=== PATIENT | male | born 1970 | race Caucasian/White ===

== ENCOUNTER 2017-10-18 15:41 | Emergency (ER) | payer MEDICARE, OTHER ==
[~2017-10-18] VITALS: Ht 162.6 cm; Wt 118.0 kg
[~2017-10-18 15:41] MED LIST: CITR454; DULO60CA6; FLURBIPROFEN; GABA-526; POLYETHYLENE GLYCOL; SENN8.6C3; ZOLP5TAB; [UNRECOGNIZED DRUG - OTHER]
[2017-10-18 15:50] VITALS: Ht 162.6 cm; Wt 118.0 kg
[2017-10-18] MEDS ORDERED: KETOROLAC 30 MG INJ IM STA (18:25)
--- NOTE | 2017-10-18 19:52 | RADRPT ---
PROCEDURE: XR Lumbar Spine. CLINICAL INDICATION: 47 years of age, male. Back pain. TECHNIQUE: AP, lateral and cone-down lateral views of the lumbar spine were obtained. COMPARISON: No prior studies are available for comparison. FINDINGS: There are 5 lumbar-type vertebrae. Lumbar spine is imaged from T12 to the sacrum. Status post combined anterior posterior instrumented fusion at L4-5 and L5-S1 with pedicle screws tr ansfixed by vertical bridging rods. There interbody fusion devices and anterior screws at L5 and S1. Orthopedic hardware has the expected appearance without evidence of loosening or failure. There has been a laminectomy at L5 for posterior decompression. Mild curvature convex left centered on L3. Otherwise normal alignment. Negative for evidence of acut e fracture. There is mild degenerative disc disease at L1-2, L2-3 and L3-4 with disc space narrowing and osteoph ytes. Degenerative changes are greatest at L2-3. Sacroiliac joints are unremarkable. There are surgical clips anterior to the lower lumbar spine and sacrum. Additional comment: There is a neurostimulator in the lower thoracic spinal canal that enters the c anal posteriorly at the T12-L1 level. There is moderate formed stool in the colon. IMPRESSION: 1. Status post combined anterior posterior instrumented fusion at L4-5 and L5-S1 and status post L5 laminectomy with the expected postoperative appearance. 2. Mild degenerative disc disease greatest at L2-3. Neurostimulator in the lower thoracic spinal can al. 3. Moderate amount of formed stool in the colon may indicate constipation. RPTAT: HCTS Physician Geovanny Date Time Electronically viewed and signed by Physician Geovanny on 10/18/2017 19:52 /
--- NOTE | 2017-10-18 20:42 | ERD ---
ER Documentation Chief Complaint Chief Complaint bib self, cc: left sided lower back pain radiating to leg, HPI Obese 47-year-old male with history of back pain presents with a chief complaint of back pain. States has gotten worse over the past couple days. History of opioid dependence. Currently taking acetaminophen with codeine and Flexeril for the pain. Patient denies trauma, saddle paresthesia, incontinence , urinary retention, or PND, fevers, chills, night sweats. Has had previous surgeries on his back. Pain rated 9/10. Worse with movement. No alleviating factors. Patient has no other complaints and describes no other associated manifestations. Nursing notes have been reviewed and are consistent with history given. ROS All systems reviewed and are negative except as per history of present illness. Medications Home Meds Reported Medications Zolpidem Tartrate (Ambien Severiano) 5 Mg Tablet, PO 05/18/12 Sennosides* (Senna*) 8.6 Mg Capsule 05/18/12 [Flurbiprofen] No Conflict Check 05/18/12 Gabapentin* (Gabapentin*) 600 Mg Tablet 05/18/12 Duloxetine Hcl* (Cymbalta*) 60 Mg Capsule. 05/18/12 [Actavis] No Conflict Check 05/18/12 [Polyethylene Glycol] No Conflict Check 05/18/12 Methylcellulose* (Citrucel*) 454 Gm Susp 05/18/12 Allergies Allergies: Uncoded Allergies: IODINE CONTRAST (Allergy, Severe, ANPHYLAXIS, 06/21/10) PMhx/Soc History of Surgery: Yes (LUMBAR SURGERY 2002, RIGHT SHOULDER, LEFT TESTICULAR SURGERY) Anesthesia Reaction: No Hx Neurological Disorder: Yes (HEADACHES RELATED TO FALL INJURY AT WORK 2002) Hx Respiratory Disorders: No Hx Cardiac Disorders: No Hx Psychiatric Problems: No Hx Miscellaneous Medical Probl: Yes (CHRONIC BACK PAIN) Hx Alcohol Use: No Hx Substance Use: No Hx Tobacco Use: No Smoking Status: Never smoker Physical Exam Vitals Vital Signs Date Time Temp Pulse Resp B/P Pulse Ox O2 Delivery O2 Flow Rate FiO2 10/18/17 15:50 98.8 91 18 133/81 96 Physical Exam Const: Morbidly obese. Mild distress. Well-appearing. Back: No midline, flank or CVA tenderness. Negative straight leg raise. Range of motion decreased secondary to pain. Neur: No saddle anesthesia. Neurovascularly intact bilaterally. Eyes: Non-injected; No discharge. EOMI and YULISSA bilaterally. Neck: No tenderness. No cervical lymphadenopathy, or masses palpated. Supple ~ No meningismus. Pulm: Good air movement in upper and lower respiratory tracts. Clear to auscultation bilaterally. No dyspnea or stridor. Cardio: Regular rate and rhythm; No murmurs, gallops or rubs auscultated. Radia pulses 2+ bilaterally. No cyanosis noted. Capillary refill less than 2 seconds. Abd: Normal bowel sounds. No palpable mass. MS: Normal motor strength, normal tone with gross examination. Skin: No petechiae or rashes. Good turgor. Psych: Normal Mood and Affect. Results 24 hrs Current Medications Medications (Trade) Dose Ordered Sig/Juwan Route PRN Reason Start Time Stop Time Status Last Admin Dose Admin Ketorolac Tromethamine (Toradol) 30 mg ONCE STAT IM 10/18/17 18:25 10/18/17 18:27 DC 10/18/17 18:58 Procedures/MDM Patient with chronic back pain presents with a chief complaint of back pain. Toradol given in the ED with adequate relief of symptoms. Ambulation WNL after Toradol. No concern for cauda equina or other neurovascular compromise. X-ray was obtained and revealed the followin. Status post combined anterior posterior instrumented fusion at L4-5 and L5- S1 and status post L5 laminectomy with the expected postoperative appearance. 2. Mild degenerative disc disease greatest at L2-3. Neurostimulator in the lower thoracic spinal canal. 3. Moderate amount of formed stool in the colon may indicate constipation. No neurological deficits. No midline tenderness. I have no concern for acute osseous abnormality including fracture dislocation, cauda equina or other neurovascular compromise. Most likely diagnosis is paraspinal muscle spasm versus degenerative disc disease versus back pain of unknown etiology. I have spoke with the patient regarding their condition and future management. They have verbally responded that they understand their status and treatment plan. The patients vitals are stable, and their current condition is appropriate for discharge. The patient will be given discharge instructions with return precautions. Departure Diagnosis: Primary Impression: Back pain Back pain location: low back pain Chronicity: chronic Back pain laterality : bilateral Sciatica presence: without sciatica Qualified Code: M54.5 - Chronic bilateral low back pain without sciatica Condition: Stable Patient Instructions: Back Pain (Acute Or Chronic) Referrals: GAMALIEL SABILLON DO (PCP) Additional Instructions: Follow up with your PCP within the next 1-3 days for a more thorough evaluation and a possible referral to a specialist. Return the the emergency department immediately if symptoms worsen or change. If you have any questions regarding medications, ask your pharmacist or us before you leave. If any adverse reactions occur while taking your medications, discontinue the treatment and return to the emergency department immediately. Take your medications as directed, and complete the entire course of treatment. SANTOS CHI PA-C Oct 18, 2017 20:42
== END 2017-10-18 21:33 | disposition home or self-care (01) ==
LOC: FTE 15:41
DX: M54.5 Low back pain (principal)
CPT/HCPCS: 72100; 96372; 99284; J1885

== ENCOUNTER 2019-05-11 11:23 | Emergency (ER) | payer MEDICARE, OTHER ==
[~2019-05-11] VITALS: Ht 167.6 cm; Wt 103.3 kg
[2019-05-11 11:26] VITALS: BP 139/99; PULSE 126; RESP 18; Ht 167.6 cm; Wt 103.3 kg
--- NOTE | 2019-05-11 12:24 | ERD ---
ER Documentation Chief Complaint Chief Complaint CHEST WALL PAIN W/COUGH, CONGESTION X4 DAYS HPI The patient is a 48-year-old male, presenting to the ER because of cough, sore throat, chest wall discomfort with the cough for the last 4 days, denies fever, chills, neck pain, chest pain with vomiting/radiation/exertion/diaphoresis, dyspnea, abdominal pain, vomiting, dizzy, diarrhea. He smokes socially, denies drinking, denies illicit drug Past medical history: Chronic low back pain, depression Past surgical history: Back, right shoulder, left testicle ROS All systems reviewed and are negative except as per history of present illness. Medications Home Meds Active Scripts Ibuprofen* (Motrin*) 600 Mg Tab, 600 MG PO Q6H PRN for PAIN AND OR ELEVATED TEMP, #20 TAB Prov:SANTOS STANTON MD 05/11/19 Promethazine HCl/Codeine (Prometh-Codein 6.25-10 mg/5 ml) 5 Ml Syrup, 5 ML PO Q 4, #120 Prov:SANTOS STANTON MD 05/11/19 Reported Medications Zolpidem Tartrate (Ambien Severiano) 5 Mg Tablet, PO 05/18/12 Sennosides* (Senna*) 8.6 Mg Capsule 05/18/12 [Flurbiprofen] No Conflict Check 05/18/12 Gabapentin* (Gabapentin*) 600 Mg Tablet 05/18/12 Duloxetine Hcl* (Cymbalta*) 60 Mg Capsule. 05/18/12 [Actavis] No Conflict Check 05/18/12 [Polyethylene Glycol] No Conflict Check 05/18/12 Methylcellulose* (Citrucel*) 454 Gm Susp 05/18/12 Allergies Allergies: Uncoded Allergies: IODINE CONTRAST (Allergy, Severe, ANPHYLAXIS, 06/21/10) PMhx/Soc History of Surgery: Yes (LUMBAR SURGERY 2002, RIGHT SHOULDER, LEFT TESTICULAR SURGERY) Anesthesia Reaction: No Hx Neurological Disorder: Yes (HEADACHES RELATED TO FALL INJURY AT WORK 2002) Hx Respiratory Disorders: No Hx Cardiac Disorders: No Hx Psychiatric Problems: No Hx Miscellaneous Medical Probl: Yes (CHRONIC BACK PAIN) Hx Alcohol Use: No Hx Substance Use: No Hx Tobacco Use: No Physical Exam Vitals Vital Signs Date Temp Pulse Resp B/P (MAP) Pulse Ox O2 O2 Flow FiO2 Time Delivery Rate 05/11/19 97.9 126 18 139/99 98 11:26 (112) Physical Exam Const: No acute distress. Head: Atraumatic. Eyes: Normal Conjunctiva. ENT: Normal External Ears, Nose and Mouth. BL Tympanic membranes and oropharynx are within normal limit Neck: Full range of motion. No meningismus. Resp: Clear to auscultation bilaterally. Cardio: Regular tachycardic. Abd: Soft, non distended, normal bowel sounds, non tender. Skin: No petechiae or rashes. Back: No midline or flank tenderness. Ext: No cyanosis, or edema. Neur: Awake and alert. No focal deficit Psych: Normal Mood and Affect. Procedures/MDM EKG: Read by emergency physician Rate/Rhythm: Sinus tachycardia beats/min QRS, ST, T-waves: No ST elevation, no T inversion Impression: Abnormal EKG MEDICAL MAKING DECISION: The patient is a 48-year-old male, presenting with acute viral syndrome, is stable for outpatient follow-up The differential diagnoses considered include but are not limited to pneumonia, bronchitis, asthma, COPD, pneumonia, pulmonary embolus, pleural effusion, congestive heart failure. Departure Diagnosis: Primary Impression: Viral syndrome Condition: Good Comments The patient's blood pressure was elevated (>120/80) but appears stable without evidence of hypertension emergency or urgency. The patient was counseled about the risks of hypertension and urged to pursue outpatient monitoring and therapy within a week with their primary care physician. He was discharged with Phenergan with codeine and Motrin I discussed the findings with the patient. I advised the patient to follow-up with the primary physician in about 1-2 days, sooner if needed and return if any concern. Disclaimer: Inadvertent spelling and grammatical errors are likely due to EHR/dictation software use and do not reflect on the overall quality of patient care. Also, please note that the electronic time recorded on this note does not necessarily reflect the actual time of the patient encounter. SANTOS STANTON MD May 11, 2019 12:23
[2019-05-11] MEDS ORDERED: PROM5SYR2 PO (12:32)
[2019-05-11] MEDS ORDERED: IBUP-1542 PO (12:32)
== END 2019-05-11 13:39 | disposition home or self-care (01) ==
LOC: FTE 11:23
DX: B34.9 Viral infection, unspecified (principal)
CPT/HCPCS: 93005